=== PATIENT | male | born 1955 | race Caucasian/White ===

== ENCOUNTER → 2023-09-11 09:28 | Outpatient (CLI) | payer OTHER, SELFPAY ==
[2023-09-11 11:06] LABS: Add Manual Diff / Slide Review NO; Basophils Absolute Auto 100 /uL (0-100); Basophils Percent Auto 1.4 % (0-2); Eosinophils Absolute Auto 100 /uL (0-450); Eosinophils Percent Auto 1.9 % (2-4); Hematocrit 44.1 % (41-53); Lymphocytes Absolute Auto 1600 /uL (1100-4500); Lymphocytes Percent Auto 23.2 % (25-40); Mean Corpuscular HGB Conc 34.1 % (30-36); Mean Corpuscular Hemoglobin 30.2 PG (26-34); Mean Corpuscular Volume 88.7 fL (80-100); Monocytes Absolute Auto 600 /uL (0-900); Monocytes Percent Auto 9.5 % (3-14); Neutrophils Absolute Auto 4400 /uL (1500-7000); Platelet Count 205 X10^3/uL (150-400); Red Blood Cell Count 4.97 X10^6/uL (4.5-5.9); Red Cell Distribution Width 12.9 % (11.6-14.8); White Blood Cell Count 6.9 X10^3/uL (4.5-11.0)
[2023-09-11 12:23] LABS: Alanine Aminotransferase 39 IU/L (<50); Albumin 4.2 g/dL (3.5-5.0); Albumin Globulin Ratio 1.4 (1.0-2.8); Alkaline Phosphatase 53 U/L (38-126); Aspartate Aminotransferase 29 IU/L (17-59); Bilirubin Total 0.8 mg/dL (0.2-1.3); Blood Urea Nitrogen 16 mg/dL (9-20); Calcium 9.1 mg/dL (8.4-10.2); Carbon Dioxide 24 mmol/L (22-32); Chloride 103 mmol/L (98-107); Cholesterol 157 mg/dL (140-199); Estimated Glomerular Filt Rate > 60 mL/min (>60); Globulin 3.1 g/dL (1.7-4.1); Glucose 134 mg/dL (80-110); HDL Cholesterol 31 mg/dL (40-60); HEMOLYSIS < 15 (0-50); LDL Cholesterol Calculated 81 mg/dL (<100); Potassium 4.7 mmol/L (3.4-5.1); Sodium 138 mmol/L (137-145); Total Protein 7.3 g/dL (6.3-8.2); Triglycerides 223 mg/dL (35-150)
[2023-09-11 15:25] LABS: Microalbumi Creatinin Ratio Ur 68.7 ug/mg CR (<30); Microalbumin Urine Random 7.7 mg/dL (0-1.6)
== END ==
PROVIDERS: PCP Family Medicine; Referring Provider Family Medicine; Visit Provider Family Medicine
DX: E11.9 Type 2 diabetes mellitus without complications (principal)
CPT/HCPCS: 36415; 80053; 80061; 82043; 82570; 83036; 85025

== ENCOUNTER → 2024-02-07 17:11 | Outpatient (CLI) | payer OTHER, SELFPAY ==
[2024-02-07 18:34] LABS: Appearance Urine UA CLEAR; Bilirubin Urine UA NEGATIVE (NEGATIVE); Color Urine UA YELLOW; Glucose Urine UA NEGATIVE (Negative); Ketones Urine UA NEGATIVE (NEGATIVE); Leukocyte Esterase Urine UA NEGATIVE (NEGATIVE); Nitrite Urine UA NEGATIVE (Negative); Occult Blood Urine UA 2+ (Negative); Protein Urine UA TRACE (Negative); Urobilinogen Urine UA 0.2 E.U./dL (0.2); pH Urine UA 6.5 (4.5-8.0)
[2024-02-07 19:07] LABS: Urine Volume 10mL (spun)
[2024-02-07 19:08] LABS: Bacteria Urine Few (2-10); Calcium Oxalate Crystals Urine Few; Culture Indicated Urine Specimen Cultured; RBC Urine 5-10/HPF (0-5/HPF); Renal Epithelial Cells Urine 5-10/HPF (0-1/HPF); Squamous Epithelial Cell Urine 5-10 /HPF (0-5/HPF); WBC Urine 5-10/HPF (0-5/HPF)
== END ==
PROVIDERS: PCP Family Medicine; Referring Provider Family Medicine; Visit Provider Family Medicine
DX: R31.9 Hematuria, unspecified (principal); R30.0 Dysuria; E11.9 Type 2 diabetes mellitus without complications; R80.9 Proteinuria, unspecified; I10 Essential (primary) hypertension
CPT/HCPCS: 81001; 82043; 82570; 87086

== ENCOUNTER → 2024-02-12 15:06 | Outpatient (CLI) | payer OTHER, SELFPAY ==
--- NOTE | 2024-02-12 15:07 | DI.RAD.S_ITS ---
PROCEDURE: XR KUB INDICATIONS: hematuria, possible kidney stones TECHNIQUE: One view of the abdomen acquired. COMPARISON: None. FINDINGS: Surgical changes and devices: None. Bowel: Bowel gas pattern is nonspecific. Minimal scattered fluid levels are noted. Soft tissues: No suspicious abdominal calcifications. Visualized solid organ contours appear normal in size. Bones: No suspicious bony lesions. IMPRESSION: Nonspecific gas pattern with minimal scattered fluid levels. This could represent ileus versus developing partial obstruction. No calcifications are identified overlying the renal shadows. Dictated by: Dinorah Cyr M.D. on 02/12/2024 at 17:43 Approved by: Dinorah Cyr M.D. on 02/12/2024 at 17:44
== END ==
PROVIDERS: PCP Family Medicine; Referring Provider Family Medicine; Visit Provider Family Medicine
DX: R31.29 Other microscopic hematuria (principal)
CPT/HCPCS: 74018

== ENCOUNTER → 2024-06-02 10:18 | Outpatient (CLI) | payer OTHER, SELFPAY ==
[2024-06-02 11:47] LABS: Cholesterol 96 mg/dL (140-199); HDL Cholesterol 28 mg/dL (40-60); LDL Cholesterol Calculated 43 mg/dL (<100); Triglycerides 123 mg/dL (35-150)
[2024-06-02 12:35] LABS: Hemoglobin A1C% w Est Avg Glu 6.7 % (4.0-6.0)
== END ==
PROVIDERS: PCP Family Medicine; Referring Provider Family Medicine; Visit Provider Family Medicine
DX: E11.9 Type 2 diabetes mellitus without complications (principal); I10 Essential (primary) hypertension; E78.5 Hyperlipidemia, unspecified
CPT/HCPCS: 36415; 80061; 83036

== ENCOUNTER → 2024-08-11 10:10 | Outpatient (CLI) | payer OTHER, SELFPAY ==
[2024-08-11 11:05] LABS: Urine Volume 10mL (spun)
[2024-08-11 11:07] LABS: Bacteria Urine None Seen; Calcium Oxalate Crystals Urine Occasional; RBC Urine 1-5/HPF (0-5/HPF); Squamous Epithelial Cell Urine None Seen (0-5/HPF); WBC Urine 10-30/HPF (0-5/HPF)
[2024-08-11 11:45] LABS: BUN Creatinine Ratio 15.8 (6-22); Blood Urea Nitrogen 15 mg/dL (9-20); Calcium 9.1 mg/dL (8.4-10.2); Carbon Dioxide 22 mmol/L (22-32); Chloride 108 mmol/L (98-107); Creatine Kinase 101 U/L (55-170); Estimated Glomerular Filt Rate > 60 mL/min (>60); Glucose 138 mg/dL (80-110); HEMOLYSIS < 15 (0-50); Potassium 4.3 mmol/L (3.4-5.1); Sodium 138 mmol/L (137-145)
== END ==
PROVIDERS: PCP Family Medicine; Referring Provider Family Medicine; Visit Provider Family Medicine
DX: R31.29 Other microscopic hematuria (principal); R31.9 Hematuria, unspecified
CPT/HCPCS: 36415; 80048; 81015; 82550; 87086

== ENCOUNTER → 2024-10-17 16:43 | Outpatient (CLI) | payer OTHER, SELFPAY ==
[2024-10-17 19:00] LABS: Prostate Specific Antigen Scrn 0.777 ng/mL (0.1-4.0)
== END ==
LOC: LAB 16:44
PROVIDERS: PCP Family Medicine; Referring Provider Family Medicine; Visit Provider Family Medicine
DX: Z12.5 Encounter for screening for malignant neoplasm of prostate (principal); R35.0 Frequency of micturition
CPT/HCPCS: 36415; G0103

== ENCOUNTER → 2024-10-27 11:02 | Outpatient (CLI) | payer OTHER, SELFPAY ==
[2024-10-27 11:24] LABS: Estimated Glomerular Filt Rate > 60 mL/min (>60)
== END ==
PROVIDERS: Radiology Diagnostic Radiology; PCP Family Medicine; Referring Provider Family Medicine; Visit Provider Family Medicine
DX: R31.9 Hematuria, unspecified (principal)
CPT/HCPCS: 36415; 82565

== ENCOUNTER → 2024-10-28 07:55 | Outpatient (CLI) | payer OTHER, SELFPAY ==
--- NOTE | 2024-10-28 07:56 | DI.CT.S_ITS ---
PROCEDURE: CT IVP A/P W/WO INDICATIONS: unresolved hemturia, urinary frequency urgency TECHNIQUE: Optional 5 mm thick noncontrast images acquired from the diaphragm to the symphysis pubis. After the administration of intravenous contrast, 5 mm thick images acquired from the diaphragm to the symphysis pubis after a 10-minute delay. 2 mm thick coronal and sagittal reformats were then performed of the kidneys and ureters. For radiation dose reduction, the following was used: automated exposure control, adjustment of mA and/or kV according to patient size. COMPARISON: None. FINDINGS: Image quality: Diagnostic. Kidneys and Ureters: Both kidneys are normal in size, without hydronephrosis or nephrolithiasis. No perinephric fat stranding. There is normal bilateral renal enhancement. Renal calyces appear normal in morphology when filled with contrast. Opacified portions of both ureters demonstrate normal caliber Bladder: Right-sided bladder mass measures 3.7 x 6.3 centimeter. There is outer bladder wall irregularity. OTHER: Lower chest: Unremarkable. Liver: No solid mass. Gallbladder: Cholelithiasis without wall thickening or adjacent fat stranding to suggest acute cholecystitis. Biliary ducts: No biliary dilation. Pancreas: No ductal dilation. Spleen: Size is within normal limits. Adrenal Glands: No adrenal nodules. Stomach and Bowel: Normal colonic caliber, without significant wall thickening. Peritoneum: No abnormal intraperitoneal fluid. No free air. Ventral Wall: No hernia. Abdominal Nodes: No retroperitoneal or mesenteric adenopathy by size criteria. Vessels: Aorta and inferior vena cava are normal in size. PELVIS: Pelvic Organs: Unremarkable. Pelvic Nodes: 8 millimeter right external iliac chain node. Miscellaneous: No inguinal hernias are seen. Bones: No aggressive osseous abnormality. Ankylosis of the sacroiliac joints. IMPRESSION: Right-sided bladder mass measuring 3.7 x 6.3 centimeter, with outer bladder wall irregularity. 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 Prominent right external iliac chain node measuring 8 millimeter short axis. No additional prominent lymph nodes. Close attention on follow-up. Recommend urology and oncology referral. Dictated by: Keegan Nicole M.D. on 10/28/2024 at 9:19 Approved by: Keegan Nicole M.D. on 10/28/2024 at 9:29
== END ==
PROVIDERS: PCP Family Medicine; Referring Provider Family Medicine; Visit Provider Family Medicine
DX: C67.9 Malignant neoplasm of bladder, unspecified (principal); R31.9 Hematuria, unspecified; K80.20 Calculus of gallbladder without cholecystitis without obstruction; R35.0 Frequency of micturition; R39.15 Urgency of urination; R30.0 Dysuria
CPT/HCPCS: 74178; Q9967